=== PATIENT | male | born 1990 | race Two or more races ===

== ENCOUNTER 2017-04-04 08:14 | Emergency (ER) | payer SELFPAY ==
--- NOTE | 2017-04-04 08:48 | ED Physician Chart ---
ED Chief Complaint/HPI - Patient Information Date Seen:: 04/04/17 Time Seen:: 08:30 Chief Complaint:: dysuria History of Present Illness:: Patient complains of dysuria and urethral itching with radiation of the discomfort to the anus since about March 28. Patient was admitted here on 03/23/17 for congestive heart failure and renal failure. He had a Wooten catheter for 4-5 days. Allergies:: Allergies Allergy/AdvReac Type Severity Reaction Status Date / Time No Known Allergies Allergy Verified 03/23/17 09:18 Historian:: Patient Review:: Nurse's Note Reviewed ED Review of Systems - Review of Systems General/Constitutional: No fever, No chills Skin: No skin lesions Head: No headache Eyes: No loss of vision ENT: No earache, No sore throat Neck: No neck pain, No swelling Pulmonary: No SOB GI: No nausea, No vomiting G/U: Dysuria, No hematuria Musculoskeletal: No bone or joint pain Endocrine: No polyuria Psychiatric: No prior psych history Hematopoietic: No bruising Allergic/Immuno: No urticaria Neurological: No syncope, No headache ED Past Medical History - Past Medical History Past Medical History: Other (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 He was a patient at [facility] and took anti rejection medication until age 19 when he was told to stop it. Patient is on dialysis [id number] ) Family History: None Social History: Smoker, No Alcohol, Other (smokes 1 pack per week; formerly drank alcohol) Surgical History: other (liver transplant; colon cancer) Psychiatricy History: None Medication: Reviewed Family Medical History - Family Member Mother History Unknown: Yes Ethnicity: Living Status: Still Living Hx Family Cancer: No Hx Family Coronary Artery Disease: No Hx Family Congestive Heart Failure: No Hx Family Hypertension: No Hx Family Stroke: No Hx Family Diabetes: No Hx Family Seizures: No Hx Family Dementia: No Hx Family AIDS: No Hx Family HIV: No Hx Family COPD: No Hx Family Hepatitis: No Hx Family Psychiatric Problems: No Hx Family Tuberculosis: No Father Ethnicity: Living Status: Still Living Hx Family Cancer: No Hx Family Coronary Artery Disease: No Hx Family Congestive Heart Failure: No Hx Family Hypertension: No Hx Family Stroke: No Hx Family Diabetes: No Hx Family Seizures: No Hx Family Dementia: No Hx Family AIDS: No Hx Family HIV: No Hx Family COPD: No Hx Family Hepatitis: No Hx Family Psychiatric Problems: No Hx Family Tuberculosis: No ED Physical Exam - Physical Examination General/Constitutional: Well-developed, well-nourished, Alert, No distress Head: Atraumatic Eyes: Lids, conjuctiva normal, PERRL Skin: Nl inspection, No rash, No skin lesions, No ecchymosis ENMT: External ears, nose nl, Nasal exam nl, Lips, teeth, gums nl, Oropharynx nl , Tonsils nl Neck: No nuchal rigidity Respiratory: Nl effort/Exclusion, Clear to Auscultation, No Wheeze/Rhonchi/Rales Cardio Vascular: RRR, No murmur, gallop, rubs, NL S1 S2 GI: No tenderness/rebounding/guarding, No mass/bruits : No CVA tenderness Extremities: Normal digits & nails Neuro/Psych: No focal deficits Misc: No paraspinal tenderness ED Labs/Radiology/EKG Results - Lab Results Comments:: Laboratory Results - last 24 hr 04/04/17 04/04/17 04/04/17 08:30 08:50 08:50 WBC 6.5 RBC 4.39 Hgb 11.8 L Hct 36.0 L MCV 81.9 MCH 26.8 MCHC Differential 32.7 RDW 14.0 Plt Count 310 D MPV 9.0 Neutrophils % 66.5 Lymphocytes % 17.6 L Monocytes % 12.4 H Eosinophils % 3.5 Basophils % 0.0 Sodium 141 Potassium 4.1 Chloride 101 Carbon Dioxide 28.6 Anion Gap 15.5 BUN 30 H Creatinine 5.6 H* Est GFR ( Amer) 15.9 Est GFR (Non-Af Amer) 13.1 BUN/Creatinine Ratio 5.4 Glucose 108 H Calcium 10.0 Magnesium 2.2 Urine Source CLEAN C Urine Color YELLOW Urine Clarity HAZY Urine pH 7.0 Ur Specific [place] 1.020 Urine Protein >=300 Urine Glucose (UA) NEGATIVE Urine Ketones NEGATIVE Urine Blood LARGE H Urine Nitrate NEGATIVE Urine Bilirubin NEGATIVE Urine Urobilinogen 0.2 Ur Leukocyte Esterase LARGE H Urine RBC 2-5 H Urine WBC 50-100 H Ur Epithelial Cells FEW Urine Bacteria MODERATE H ED Assessment - Assessment General Assessment: Checked with pharmacy list and she suggested Keflex 500 mg twice a day for 1 week would be acceptable dose for this patient. ED Septic Shock - . Is Septic Shock (SBP<90, OR Lactate>4 mmol\L) present?: No ED Reassessment (Disposition) - Reassessment Reassessment Condition:: Unchanged - Diagnosis Diagnosis:: Urinary tract infection; renal failure on dialysis; status post liver transplant - Aftercare/Follow up Instructions Medication Prescribed:: Prescription for Keflex 500 mg twice a day for 1 week - Patient Disposition Discharge/Transfer:: Home Condition at Disposition:: Stable, Unchanged
[2017-04-04 08:55] LABS: URINE MICROSCOPIC INDICATED? YES; URINE SOURCE CLEAN C
[2017-04-04 09:02] LABS: % EOSINOPHILS 3.5 % (0.0-5.0); % LYMPHOCYTES 17.6 % (20.0-50.0); % MONOCYTES 12.4 % (2.0-10.0); % NEUTROPHILS 66.5 % (40.0-80.0); EOSINOPHILE ABSOLUTE 0.2 Th/cmm (0.1-0.4); HEMOGLOBIN 11.8 gm/dL (12-16); LYMPHOCYTE ABSOLUTE 1.1 Th/cmm (1.5-3.0); MEAN CELL VOLUME 81.9 fl (80-99); MEAN CORPUSCULAR HEMOGLOBIN 26.8 pg (26.0-30.0); MEAN CORPUSCULAR HGB CONC 32.7 pg (28.0-36.0); MONOCYTE ABSOLUTE 0.8 Th/cmm (0.3-1.0); NEUTROPHILE ABSOLUTE 4.4 Th/cmm (1.8-8.0); RED BLOOD COUNT 4.39 Mil/cmm (4.30-5.70); WHITE BLOOD COUNT 6.5 Th/cmm (4.8-10.8)
[2017-04-04 09:07] LABS: URINE BILIRUBIN NEGATIVE (NEGATIVE); URINE BLOOD LARGE (NEGATIVE); URINE GLUCOSE (UA) NEGATIVE (NEGATIVE); URINE KETONE NEGATIVE (NEGATIVE); URINE LEUKOCYTE ESTERASE LARGE (NEGATIVE); URINE NITRATE NEGATIVE (NEGATIVE); URINE PROTEIN >=300 mg/dL (NEGATIVE); URINE UROBILINOGEN 0.2 E.U./dL (0.2 - 1.0)
[2017-04-04 09:07] LABS: PLATELET COUNT 310 Th/cmm (150-400)
[2017-04-04 09:11] LABS: URINE CLARITY HAZY (CLEAR); URINE COLOR YELLOW
[2017-04-04 09:17] LABS: URINE BACTERIA MODERATE /hpf (NONE SEEN); URINE EPITHELIAL CELLS FEW /lpf (FEW); URINE WBC 50-100 /hpf (0-5)
[2017-04-04 09:21] LABS: ANION GAP 15.5 (7.0-16.0); CARBON DIOXIDE 28.6 mEq/L (21.0-31.0); GFR AFRICAN-AMERICAN 15.9 ml/min (>90); GFR NON AFRICAN-AMERICAN 13.1 ml/min; MAGNESIUM 2.2 mg/dL (1.9-2.7); POTASSIUM SERUM 4.1 mEq/L (3.5-5.1)
[2017-04-04 09:22] LABS: CREATININE - SERUM 5.6 mg/dL (0.7-1.3)
== END 2017-04-04 10:15 | disposition home or self-care (01) ==
LOC: ER 08:14
DX: N39.0 Urinary tract infection, site not specified (principal); N19 Unspecified kidney failure; F17.210 Nicotine dependence, cigarettes, uncomplicated; Z99.2 Dependence on renal dialysis; Z94.4 Liver transplant status
CPT/HCPCS: 36415-UA; 80048-TC; 81001-TC; 83735-TC; 85025-TC; 87086-90; Z7502; Z7610

== ENCOUNTER 2017-06-06 02:25 | Emergency (ER) | payer MEDICARE, MEDICAID ==
--- NOTE | 2017-06-06 03:15 | ED Physician Chart ---
ED Chief Complaint/HPI - Patient Information Date Seen:: 06/06/17 Time Seen:: 03:06 Chief Complaint:: Constipation History of Present Illness:: 27 yo male had not had bowel movement for 3 days. He tried colace 200mg daily for 2 days which did not help. He had CHF and end stage renal disease on dialysis [facility], Sat since March 2017. He is taking Renvela and folic acid. Allergies:: Allergies Allergy/AdvReac Type Severity Reaction Status Date / Time No Known Allergies Allergy Verified 03/23/17 09:18 Vitals:: Vital Signs - 8 hr 06/06/17 02:30 Temp 97.4 F HR 111 RR 18 BP 128/79 O2 Sat % 100 ED Review of Systems - Review of Systems General/Constitutional: No fever Skin: No skin lesions Head: No headache Eyes: No pain ENT: No earache Neck: No neck pain Cardio Vascular: No chest pain Pulmonary: No SOB GI: No nausea, No vomiting Musculoskeletal: No bone or joint pain Psychiatric: No prior psych history Neurological: No focal symptoms ED Past Medical History - Past Medical History Past Medical History: HTN, CHF, ESRD, Other (Liver cancer) Social History: Smoker, No Alcohol, No Drug Use Surgical History: other (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, right chest catheter for dialysis) Family Medical History - Family Member Mother History Unknown: Yes Ethnicity: Living Status: Still Living Hx Family Cancer: No Hx Family Coronary Artery Disease: No Hx Family Congestive Heart Failure: No Hx Family Hypertension: No Hx Family Stroke: No Hx Family Diabetes: No Hx Family Seizures: No Hx Family Dementia: No Hx Family AIDS: No Hx Family HIV: No Hx Family COPD: No Hx Family Hepatitis: No Hx Family Psychiatric Problems: No Hx Family Tuberculosis: No Father History Unknown: Yes Ethnicity: Living Status: Still Living Hx Family Cancer: No Hx Family Coronary Artery Disease: No Hx Family Congestive Heart Failure: No Hx Family Hypertension: No Hx Family Stroke: No Hx Family Diabetes: No Hx Family Seizures: No Hx Family Dementia: No Hx Family AIDS: No Hx Family HIV: No Hx Family COPD: No Hx Family Hepatitis: No Hx Family Psychiatric Problems: No Hx Family Tuberculosis: No ED Physical Exam - Physical Examination General/Constitutional: Awake Head: Atraumatic Eyes: PERRL Skin: No skin lesions ENMT: Nasal exam nl Neck: No nuchal rigidity Respiratory: Nl effort/Exclusion, No Wheeze/Rhonchi/Rales Cardio Vascular: RRR, No murmur, gallop, rubs, NL S1 S2 Other GI comments:: hyperactive bowel sound, mild distended Extremities: No tenderness or effusion Neuro/Psych: Alert/oriented, No focal deficits ED Assessment - Assessment General Assessment: Constipation ESRD on dialysis Assessment/Comments:: CBC, CMP, Lipase Fleet enema D/c home ED Septic Shock - . Is Septic Shock (SBP<90, OR Lactate>4 mmol\L) present?: No - <6hrs of presentation: Vital Signs: Vital Signs - 8 hr // 02:30 Temp 97.4 F HR 111 RR 18 BP 128/79 O2 Sat % 100 ED Reassessment (Disposition) - Reassessment Reassessment Condition:: Improved - Patient Disposition Discharge/Transfer:: Home ED Discharge Plan - Patient Disposition Admit/Discharge/Transfer: PT DISCHARGED HOME Condition at Disposition: Stable Instructions: Constipation, Adult Additional Instructions: FOLLOW UP WITH YOUR DOCTOR IN 1-2 DAYS AND TO COME BACK TO ER IF SYMPTOMS WORSEN
[2017-06-06 03:43] LABS: URINE MICROSCOPIC INDICATED? YES; URINE SOURCE RANDOM
[2017-06-06 03:45] LABS: % BASOPHILS 0.7 % (0.0-2.0); % EOSINOPHILS 2.6 % (0.0-5.0); % MONOCYTES 8.5 % (2.0-10.0); % NEUTROPHILS 64.2 % (40.0-80.0); EOSINOPHILE ABSOLUTE 0.2 Th/cmm (0.1-0.4); HEMATOCRIT 38.4 % (41.0-60); HEMOGLOBIN 12.7 gm/dL (12-16); LYMPHOCYTE ABSOLUTE 1.7 Th/cmm (1.5-3.0); MEAN CELL VOLUME 86.2 fl (80-99); MEAN CORPUSCULAR HEMOGLOBIN 28.5 pg (26.0-30.0); MEAN CORPUSCULAR HGB CONC 33.1 pg (28.0-36.0); MEAN PLATELET VOLUME 8.9 fl; MONOCYTE ABSOLUTE 0.6 Th/cmm (0.3-1.0); NEUTROPHILE ABSOLUTE 4.4 Th/cmm (1.8-8.0); PLATELET COUNT 187 Th/cmm (150-400); RED BLOOD COUNT 4.46 Mil/cmm (4.30-5.70); RED CELL DISTRIBUTION WIDTH 16.2 % (11.5-20.0); WHITE BLOOD COUNT 6.9 Th/cmm (4.8-10.8)
[2017-06-06 03:55] LABS: URINE BILIRUBIN NEGATIVE (NEGATIVE); URINE BLOOD NEGATIVE (NEGATIVE); URINE GLUCOSE (UA) NEGATIVE (NEGATIVE); URINE KETONE 15 mg/dL (NEGATIVE); URINE LEUKOCYTE ESTERASE NEGATIVE (NEGATIVE); URINE NITRATE NEGATIVE (NEGATIVE); URINE PROTEIN >=300 mg/dL (NEGATIVE); URINE UROBILINOGEN 0.2 E.U./dL (0.2 - 1.0)
[2017-06-06 04:04] LABS: ALB/GLOB RATIO 1.4 (1.0-1.8); ALBUMIN 4.9 gm/dL (4.2-5.5); ANION GAP 17.1 (7.0-16.0); BILIRUBIN,TOTAL 0.4 mg/dL (0.3-1.0); CALCIUM SERUM 10.7 mg/dL (8.6-10.3); CARBON DIOXIDE 23.6 mEq/L (21.0-31.0); GFR NON AFRICAN-AMERICAN 6.6 ml/min; POTASSIUM SERUM 3.7 mEq/L (3.5-5.1); TOTAL PROTEIN,SERUM 8.4 gm/dL (6.0-8.3)
[2017-06-06 04:07] LABS: CREATININE - SERUM 10.1 mg/dL (0.7-1.3)
[2017-06-06 04:10] LABS: URINE CLARITY CLEAR (CLEAR); URINE COLOR YELLOW
[2017-06-06 04:16] LABS: URINE RBC 0-2 /hpf (0-5)
[2017-06-06 04:17] LABS: URINE BACTERIA FEW /hpf (NONE SEEN); URINE EPITHELIAL CELLS FEW /lpf (FEW)
[2017-06-06] MEDS ORDERED: Fleet Enema 135 mL RC ONE (05:14)
--- NOTE | 2017-06-06 08:08 | Diagnostic Imaging Report ---
Abdominal series 2 views History: Abdominal pain, constipation and nausea and vomiting Comparison: None Findings: There is copious amount of stool throughout the colon with gas-filled loops of bowel. There is a nonspecific 2 cm cylindrical radiodensity seen projecting along the left pelvic region. Osseous structures are intact. No evidence of gross free air. IMPRESSION: Copious amount of stool. Please correlate clinically for constipation. Nonspecific 2 cm cylindrical density projecting along the left pelvic region. This may represent external material or be due to previous surgery or less likely represent ingested material. Please correlate clinically. Follow-up is recommended.
== END 2017-06-06 06:30 | disposition home or self-care (01) ==
LOC: ER 02:25
DX: K59.00 Constipation, unspecified (principal); I13.2 Hypertensive heart and chronic kidney disease with heart failure and with stage 5 chronic kidney disease, or end stage renal disease; N18.6 End stage renal disease; I50.9 Heart failure, unspecified; F17.200 Nicotine dependence, unspecified, uncomplicated
CPT/HCPCS: 36415-UA; 74019-TC; 80053-TC; 81001-TC; 83690-TC; 83880-TC; 84484-TC; 85025-TC